=== PATIENT | male | born 1930 | race Caucasian/White ===

== ENCOUNTER 2016-06-06 09:01 | Outpatient (CLI) | payer MEDICARE, OTHER ==
[2016-06-06 12:33] LABS: #Basophils 0.1 thou/uL (0.0-0.2); #Eosinphils 0.1 thou/uL (0.0-0.7); #Lymphocytes 1.9 thou/uL (1.20-3.40); #Monocytes 0.4 thou/uL (0.11-0.59); %Basophils 0.8 % (0.0-1.0); %Eosinophils 1.6 % (0.0-10.0); %Monocytes 5.7 % (0.0-10.0); %Neutrophils 62.9 % (42.0-75.0); Hemoglobin 13.6 g/dL (14.0-18.0); Mean Corpuscular HGB CONC 33.4 g/dL (32.0-36.0); Mean Corpuscular Hemoglobin 30.9 pg (27.0-31.0); Mean Corpuscular Volume 92.6 fl (80.0-94.0); Mean Platelet Volume 7.1 fL (7.4-10.4); Platelet Count 273 thou/uL (130-400); RBC Distribution Width 12.4 % (11.5-14.5); Red Blood Cell (RBC) Count 4.39 mill/uL (4.70-6.10); White Blood Cell (WBC) Count 6.4 thou/uL (4.8-10.8)
[2016-06-06 12:51] LABS: ALT (SGPT) 13 U/L (0-55); AST (SGOT) 15 U/L (5-34); Albumin 4.3 g/dL (3.4-4.8); Alkaline Phosphatase 65 U/L (40-150); Anion Gap 17 mmol/L (10-20); BUN (Urea Nitrogen) 18 mg/dL (8.4-25.7); Bilirubin, Total 1.4 mg/dL (0.2-1.2); Calc. Creatinine Clearance 0 mL/min (70-130); Calcium 9.2 mg/dL (7.8-10.44); Carbon Dioxide 24 mmol/L (23-31); Cardiac Risk 3.2 (Less than 4.5); Chloride 105 mmol/L (98-107); Cholesterol 137 mg/dL (< 200 Desired); Estimated GFR-MDRD 44; Globulin 2.6 g/dL (2.4-3.5); Glucose 140 mg/dL (83-110); HDL Cholesterol 43 mg/dL (>60 Neg Risk); LDL Cholesterol, Calculated 72 mg/dL; Potassium 4.5 mmol/L (3.5-5.1); Protein, Total 6.9 g/dL (5.8-8.1); Sodium 141 mmol/L (136-145); Triglycerides 108 mg/dL (Less than 150)
[2016-06-06 13:07] LABS: Hemoglobin A1c 6.3 % (4.0-6.0)
[2016-06-06 13:32] LABS: Bilirubin Negative (Negative); Blood, Urine Negative (Negative); Clarity Clear (Clear); Glucose, Urine (Dipstick) Negative (Negative); Leukocyte Negative (Negative); Nitrite Negative (Negative); Protein, Urine (Dipstick) Negative (Neg-Trace); Specific Gravity, Urine 1.015 (1.005-1.030); Urobilinogen 0.2 mg/dL (0.2-1.0); pH, Urine 5.5 (5.0-9.0)
== END 2016-06-06 09:02 ==
LOC: NAVSJIPCSP 09:01
PROVIDERS: ATTEND Internal Medicine
DX: E78.5 Hyperlipidemia, unspecified (principal); I13.10 Hypertensive heart and chronic kidney disease without heart failure, with stage 1 through stage 4 chronic kidney disease, or unspecified chronic kidney disease; E11.22 Type 2 diabetes mellitus with diabetic chronic kidney disease; N18.2 Chronic kidney disease, stage 2 (mild); Z79.899 Other long term (current) drug therapy
CPT/HCPCS: 36415; 80053; 80061; 81003; 83036; 85025

== ENCOUNTER 2016-09-08 08:34 | Outpatient (CLI) | payer MEDICARE ==
[2016-09-08 12:49] LABS: Hemoglobin A1c 6.6 % (4.0-6.0)
[2016-09-08 13:11] LABS: Anion Gap 16 mmol/L (10-20); BUN (Urea Nitrogen) 18 mg/dL (8.4-25.7); Calc. Creatinine Clearance 0 mL/min (70-130); Carbon Dioxide 23 mmol/L (23-31); Cardiac Risk 2.7 (Less than 4.5); Chloride 106 mmol/L (98-107); Cholesterol 134 mg/dl (< 200 Desired); Estimated GFR-MDRD 45; Glucose 136 mg/dL (83-110); HDL Cholesterol 49 mg/dL (>60 Neg Risk); LDL Cholesterol, Calculated 69 mg/dL; Potassium 4.7 mmol/L (3.5-5.1); Sodium 140 mmol/L (136-145); Triglycerides 81 mg/dL (Less than 150)
== END 2016-09-08 08:35 | disposition home or self-care (01) ==
LOC: NAVSJIPCSP 08:34
PROVIDERS: ATTEND Internal Medicine
DX: E11.29 Type 2 diabetes mellitus with other diabetic kidney complication (principal); N18.2 Chronic kidney disease, stage 2 (mild); E78.5 Hyperlipidemia, unspecified; Z79.899 Other long term (current) drug therapy
CPT/HCPCS: 36415; 80048; 80061; 83036

== ENCOUNTER 2016-10-17 12:10 | Outpatient (CLI) | payer MEDICARE ==
[~2016-10-17 12:10] MED LIST: Iodixanol 320 MG/ML (100 ML BOT) ONE
[2016-10-17 12:44] LABS: Anion Gap 15 mmol/L (10-20); BUN (Urea Nitrogen) 21 mg/dL (8.4-25.7); Calc. Creatinine Clearance 0 mL/min (70-130); Calcium 9.6 mg/dL (7.8-10.44); Carbon Dioxide 26 mmol/L (23-31); Chloride 102 mmol/L (98-107); Estimated GFR-MDRD 42; Glucose 117 mg/dL (83-110); Sodium 138 mmol/L (136-145)
--- NOTE | 2016-10-17 15:50 | CT ---
CT ABDOMEN AND PELVIS WITH IV AND ORAL CONTRAST: Date: 10/17/16 HISTORY: Right lower quadrant pain. FINDINGS: The lung bases are clear. Calcified granulomata are consistent with healed granulomatous disease. Hi atal hernia is apparent. Cysts arise from the cortex of the left kidney. 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 The is calcification throughout the arterial structures. Urinary bladder is unremarkable . The appendix is not inflamed. IMPRESSION: 1. Status post left nephrectomy. 2. No acute abnormalities are demonstrated. 3. Atherosclerosis. POS: [facility]
== END 2016-10-17 12:11 | disposition home or self-care (01) ==
LOC: NAV CT 12:10
PROVIDERS: ATTEND Internal Medicine
DX: R10.31 Right lower quadrant pain (principal); N18.2 Chronic kidney disease, stage 2 (mild); I70.90 Unspecified atherosclerosis; Z79.899 Other long term (current) drug therapy; Z90.5 Acquired absence of kidney
CPT/HCPCS: 36415; 74177; 80048; Q9967

== ENCOUNTER 2016-12-12 08:11 | Outpatient (CLI) | payer MEDICARE ==
[2016-12-12 12:39] LABS: Hemoglobin A1c 6.5 % (4.0-6.0)
[2016-12-12 12:43] LABS: Anion Gap 19 mmol/L (10-20); BUN (Urea Nitrogen) 21 mg/dL (8.4-25.7); Calc. Creatinine Clearance 0 mL/min (70-130); Calcium 9.2 mg/dL (7.8-10.44); Carbon Dioxide 20 mmol/L (23-31); Cardiac Risk 2.6 (Less than 4.5); Chloride 104 mmol/L (98-107); Cholesterol 130 mg/dl (< 200 Desired); Estimated GFR-MDRD 39; Glucose 130 mg/dL (83-110); HDL Cholesterol 50 mg/dL (>60 Neg Risk); LDL Cholesterol, Calculated 62 mg/dL; Potassium 4.8 mmol/L (3.5-5.1); Sodium 138 mmol/L (136-145); Triglycerides 91 mg/dL (Less than 150)
== END 2016-12-12 08:12 | disposition home or self-care (01) ==
LOC: NAVSJIPCSP 08:11
PROVIDERS: ATTEND Internal Medicine
DX: E11.29 Type 2 diabetes mellitus with other diabetic kidney complication (principal); N18.2 Chronic kidney disease, stage 2 (mild); E78.5 Hyperlipidemia, unspecified
CPT/HCPCS: 36415; 80048; 80061; 83036

== ENCOUNTER 2017-06-29 10:48 | Outpatient (CLI) | payer MEDICARE ==
--- NOTE | 2017-06-29 11:52 | RAD ---
THREE VIEWS RIGHT SHOULDER: COMPARISON: None. HISTORY: Right shoulder pain. FINDINGS: Three views right shoulder show no evidence of acute fracture or dislocation. Moderate degenerative change is seen in the acromioclavicular and glenohumeral joints. The visualized right thorax is unre markable. 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 POS: [facility]
== END 2017-06-29 10:49 | disposition home or self-care (01) ==
LOC: NAV RAD 10:48
PROVIDERS: ATTEND Internal Medicine
DX: M25.511 Pain in right shoulder (principal); M19.011 Primary osteoarthritis, right shoulder